=== PATIENT | male | born 1960 | race Caucasian/White ===

== ENCOUNTER → 2020-01-30 13:46 | Outpatient (BNVA) | payer MEDICARE, MEDICAID, SELFPAY | PROVIDERS: Visit Provider Surgery | DX: Z20.828 Contact with and (suspected) exposure to other viral communicable diseases (principal) | CPT/HCPCS: 87635 ==

== ENCOUNTER 2020-02-02 06:52 | Day surgery (SDC) | payer MEDICARE, MEDICAID, SELFPAY ==
[2020-01-28 12:22] VITALS: BMI 36.9
[2020-02-02 07:10] VITALS: BP 148/105; PULSE 72; RESP 18; TEMP 36.4; O2SAT 92
[2020-02-02] MEDS: sodium chloride 0.9% 1,000 ML 30 ML IV (07:17)
[2020-02-02 07:20] LABS: Glucose Point of Care 140 mg/dL (70-110)
--- NOTE | 2020-02-02 07:46 | P.ANESASSM_ITS ---
Pre-Anesthetic Assessment Pre-Anesthetic Assessment: Height/Weight: Height 1.68 m Weight 103.873 kg Temp Pulse Resp BP Pulse Ox 97.5 F L 72 18 148/105 92 02/02/20 07:10 02/02/20 07:10 02/02/20 07:10 02/02/20 07:10 02/02/20 07:10 Preop Diagnosis: Screening Proposed Procedure: Operation Date: 02/02/20 08:00 Proposed Procedures p Colonoscopy 02582 Z12.11(Not Applicable) - Brad Cerna MD Familial anesthetic complications: None Was Beta Gonzalo taken within 24 hours: N/A Last intake: Intake Last Liquid Date 02/01/20 Last Liquid Time 21:00 Last Solid Date 01/31/20 Last Solid Time 20:00 Social: Social History: No alcohol and No tobacco Exam: Pre-Anes Outpt Exam: alert, oriented x 3, clear to auscultation bilatera lly and regular rate & rhythm Airway: Cervical ROM: WNL MP: 1 Dentition: False Musc/skel: Musc/skel: OA/DJD Neuropsych: Comments: intellectual disability Anesthetic Plan: ASA status: 1 Anesthesia: MAC Risk of > 500 ml blood loss (7ml/kg in children): No Meds/Allergies Current Medications: Current Medications Generic Name Dose Route Start Last Admin Trade Name Freq PRN Reason Stop Dose Admin Sodium Chloride 1,000 mls @ 30 ml s/hr 02/02/20 07:00 02/02/20 07:17 Sodium Chloride 0.9% IV 02/03/20 06:59 30 mls/hr .Q24H BLOSSOM Administration PFSH Anesthesia PFSH: Medical History (Updated 12/28/19 @ 16:08 by Brad Cerna MD) Bipolar disorder, current episode manic without psychotic features, severe Intellectual disability Umbilical hernia, incarcerated Social History Smoking and tobacco status: never smoked Alcohol intake: never Caregiver/support person: Yes Lives independently: No Marital status: Single History of recent travel: No Data Anesthesia Other Labs: Laboratory Results - last 48 hr 02/02/20 07:17 POC Glucose 140 Cardiac Studies: No Data to Display
[2020-02-02 08:25] VITALS: BP 131/99; PULSE 68; RESP 16; TEMP 36.1; O2SAT 94
--- NOTE | 2020-02-02 08:32 | W.PM.OPSFHP ---
Same Day Surgery H&P Indication for Procedure/HPI DATE OF PROCEDURE: February 02, 2020 CHIEF COMPLAINT/INDICATIONFOR SURGICAL PROCEDURE: screeening PREOP DIAGNOSIS: Screening PLANNED PROCEDRUE: Operation Date: 02/02/20 08:00 Proposed Procedures p Colonoscopy 02452 Z12.11(Not Applicable) - Brad Cerna MD Medications/Allergies* Home Medications Medication Instructions Recorded Confirmed Type acetaminophen 300 mg-codeine 30 mg 1 tab PO TID PRN 12/28/19 02/02/20 History tablet ibuprofen 800 mg tablet 800 mg PO TID 12/28/19 01/28/20 History tizanidine 4 mg capsule 4 mg PO Q8H PRN 12/28/19 02/02/20 History Allergies/Adverse Reactions Allergy/AdvReac Type Severity Reaction Status Date / Time No Known Allergies Allergy Verified 12/28/19 11:38 Current Medications: Generic Name Dose Route Start Last Admin Trade Name Freq PRN Reason Stop Dose Admin Sodium Chloride 1,000 mls @ 30 mls/hr 02/02/20 07:00 02/02/20 07:17 Sodium Chloride 0.9% IV 02/03/20 06:59 30 mls/hr .Q24H BLOSSOM Administration Pertinent History/Comorbid Conditions* Medical History (Updated 12/28/19 @ 16:08 by Brad Cerna MD) Bipolar disorder, current episode manic without psychotic features, severe Intellectual disability Umbilical hernia, incarcerated Social History Smoking and tobacco status: never smoked Alcohol intake: never Caregiver/support person: Yes Lives independently: No Marital status: Single History of recent travel: No Pertinent Exam Findings alert, oriented x 3 and regular rate & rhythm Recommendations Surgery/Procedure today Coding Level of Care Code Acute Armature Rewinder for Yandel Lemus
[2020-02-02 08:37] VITALS: BP 141/100; PULSE 67; RESP 18; O2SAT 95
--- NOTE | 2020-02-02 17:29 | ANE.PACU2 ---
Inpatient post-anesthesia follow up: Airway intact: Yes Vital signs: Temperature 97.0 F Pulse Rate 67 Respiratory Rate 18 Blood Pressure 141/100 Pulse Oximetry 95 Oxygen Delivery Me thod Room Air Oxygen Flow Rate Fraction of Inspir ed Oxygen Hydration adequate: Yes Nausea and vomiting: No Pain level: 1 Mental status: Baseline
== END 2020-02-02 08:50 | disposition home or self-care (01) ==
PROVIDERS: PCP Nurse Practitioner Family; Visit Provider Surgery
PROC: 0DJD8ZZ Inspection of Lower Intestinal Tract, Via Natural or Artificial Opening Endoscopic (ICD-10-PCS; CPT 45378; principal; 2020-02-02 08:00)
DX: Z12.11 Encounter for screening for malignant neoplasm of colon (principal); K64.8 Other hemorrhoids; M19.90 Unspecified osteoarthritis, unspecified site
CPT/HCPCS: 12345; 36416; 82962; G0121; J2704; J7030

== ENCOUNTER 2020-02-03 08:15 | Day surgery (SDC) | payer MEDICARE, MEDICAID, SELFPAY ==
[2020-02-02 17:38] VITALS: BMI 36.9
[2020-02-03] VITALS (10 sets, daily range): BP systolic 138–180; BP diastolic 93–112; PULSE 63–80; RESP 16–20; TEMP 36.3–36.6; O2SAT 90–97
--- NOTE | 2020-02-03 09:34 | ANES.PREANE2 ---
Pre-Anesthetic Assessment Pre-Anesthetic Assessment: Height/Weight: Height 1.68 m Weight 103.873 kg Temp Pulse Resp BP Pulse Ox 97.8 F 80 20 H 155/102 95 02/03/20 09:07 02/03/20 09:07 02/03/20 09:07 02/03/20 09:07 02/03/20 09:07 Preop Diagnosis: incisional hernia Proposed Procedure: Operation Date: 02/03/20 10:05 Proposed Procedures p Laparoscopic poss Open Umbilical Hernia Repair w/ Mesh 83176 K42.0(Not Applicable) - Brad Cerna MD Was Beta Gonzalo taken within 24 hours: N/A Last intake: Intake Last Liquid Date 02/02/20 Last Liquid Time 21:00 Last Solid Date 02/02/20 Last Solid Time 21:00 Social: Social History: No alcohol and No tobacco Exam: Pre-Anes Outpt Exam: alert, oriented x 3, clear to auscultation bilaterally and regular rate & rhythm Airway: Submandibular: WNL Cervical ROM: WNL MP: 1 Dentition: False History/ROS: No significant history except as noted Pulmonary: Pulmonary: None reported CV/HEM: CV/HEM: None reported : : None reported Hepatic: Hepatic: None reported GI: GI: None reported Metabolic: Metabolic: None reported Musc/skel: Musc/skel: OA/DJD Neuropsych: Neuropsych: Bipolar Comments: Cognitive delay with speech impediment Anesthetic Plan: ASA status: 3 Anesthesia: General PFS Anesthesia PFSH: Medical History (Updated 12/28/19 @ 16:08 by Brad Cerna MD) Bipolar disorder, current episode manic without psychotic features, severe Intellectual disability Umbilical hernia, incarcerated Surgical History (Updated 02/02/20 @ 08:33 by Brad Cerna MD) Status post colonoscopy (02/02/20) repeat in 10 years Social History Smoking and tobacco status: never smoked Alcohol intake: never Caregiver/support person: Yes Lives independently: No Marital status: Single History of recent travel: No Data Anesthesia Cardiac Studies: No Data to Display
[2020-02-03] MEDS: sodium chloride 0.9% 1,000 ML 30 ML IV (09:51)
--- NOTE | 2020-02-03 10:08 | W.PM.OPSFHP ---
Same Day Surgery H&P Indication for Procedure/HPI DATE OF PROCEDURE: February 03, 2020 CHIEF COMPLAINT/INDICATIONFOR SURGICAL PROCEDURE: umbilical hernia PREOP DIAGNOSIS: incisional hernia PLANNED PROCEDRUE: Operation Date: 02/03/20 10:05 Proposed Procedures p Laparoscopic poss Open Umbilical Hernia Repair w/ Mesh 98395 K42.0(Not Applicable) - Brad Cerna MD Medications/Allergies* Home Medications Medication Instructions Recorded Confirmed Type acetaminophen 300 mg-codeine 30 mg 1 tab PO TID PRN 12/28/19 02/03/20 History tablet ibuprofen 800 mg tablet 800 mg PO TID 12/28/19 02/03/20 History tizanidine 4 mg capsule 4 mg PO Q8H PRN 12/28/19 02/03/20 History Allergies/Adverse Reactions Allergy/AdvReac Type Severity Reaction Status Date / Time No Known Allergies Allergy Verified 02/03/20 09:07 Current Medications: Generic Name Dose Route Start Last Admin Trade Name Freq PRN Reason Stop Dose Admin Sodium Chloride 1,000 mls @ 30 mls/hr 02/03/20 09:45 02/03/20 09:51 Sodium Chloride 0.9% IV 02/04/20 09:44 30 mls/hr .Q24H BLOSSOM Administration Pertinent History/Comorbid Conditions* Medical History (Updated 12/28/19 @ 16:08 by Brad Cerna MD) Bipolar disorder, current episode manic without psychotic features, severe Intellectual disability Umbilical hernia, incarcerated Surgical History (Updated 02/02/20 @ 08:33 by Brad Cerna MD) Status post colonoscopy (02/02/20) repeat in 10 years Social History Smoking and tobacco status: never smoked Alcohol intake: never Caregiver/support person: Yes Lives independently: No Marital status: Single History of recent travel: No Pertinent Exam Findings alert, oriented x 3, regular rate & rhythm and operative site marked Recommendations Surgery/Procedure today Coding Level of Care Code Acute Rabbit Breeder for Yandel Lemus
[2020-02-03] MEDS: fentaNYL 50 mcg/mL INJ 2mL IVP (12:33)
--- NOTE | 2020-02-03 12:43 | SUR.PHASEI ---
PT RESTING QUIETLY, AWAKES AND LOOKS AT ABD, VSS PT WITH 3LNC SATS 91% PT ENCOURAGED TO DEEP BREATH OCCASIONALLY AND PT AWAKES EASILY IS ALERT AND FOLLOWS COMMANDS.
--- NOTE | 2020-02-03 13:25 | ANE.PACU2 ---
Inpatient post-anesthesia follow up: Airway intact: Yes Vital signs: Temperature 97.3 F Pulse Rate 63 Respiratory Rate 16 Blood Pressure 143/93 Pulse Oximetry 94 Oxygen Delivery Me thod Nasal Cannula Oxygen Flow Rate 2 Fraction of Inspir ed Oxygen Hydration adequate: Yes Nausea and vomiting: No Pain level: 4 Mental status: Baseline
[2020-02-03] MEDS: HYDROcodone-acetaminophen 5-325 mg Tablet 1 TAB PO (15:17)
--- NOTE | 2020-02-04 13:38 | PM.OP ---
Operative Report Date of procedure: February 04, 2020 Pre-op Diagnosis: Incarcerated umbililcal hernia Post-op Diagnosis: Incarcerated umbilical hernia containing omentum Procedure Done: Laparoscopic converted to open umbilical hernia repair Implantation of ventralight ST mesh Pathology: Omentum Surgeon: Brad Cerna Anesthesia: General Condition: stable Disposition: PACU Procedure: The patient was taken to the Operating Room and was intubated under general anesthesia after the antibiotic had been administered. The abdomen was prepped and draped in a sterile manner. Using a 15 blade, a 2-cm incision was made in the left upper quadrant in the anterior axillary line and pneumoperitoneum was created using Verres needle. A 10 mm Narendra port was placed and 15 mm of pneumoperitoneum was created after a 10 mm 30? scope had been introduced. 5 mm ports were placed at the level of the umbilicus and in the left lower quadrant under direct visualization. The skin at all 3 incisions for closed using subcuticular 4-0 Monocryl suture. The stab incisions and the 3 port sites were covered with Dermabond. 10cc of 0.5% Marcaine was infiltrated around the port sites. Abdominal binder was placed at the end of the procedure.
--- NOTE | 2020-02-12 15:59 | PM.OP ---
Operative Report Date of procedure: February 03, 2020 Pre-op Diagnosis: Incarcerated umbililcal hernia Post-op Diagnosis: Incarcerated umbilical hernia containing omentum Procedure Done: Laparoscopic converted to open umbilical hernia repair Implantation of Bard mesh Pathology: none sent Surgeon: Brad Cerna Anesthesia: General Condition: stable Disposition: PACU Procedure: The patient was taken to the Operating Room and was intubated under general anesthesia after the antibiotic had been administered. The abdomen was prepped and draped in a sterile manner. Using a 15 blade, a 2-cm incision was made in the left upper quadrant in the anterior axillary line and pneumoperitoneum was created using Verres needle. A 10 mm Narendra port was placed and 15 mm of pneumoperitoneum was created after a 10 mm 30? scope had been introduced. 5 mm ports were placed at the level of the umbilicus and in the left lower quadrant under direct visualization. Multiple attempts were made using [place] forceps and bowel graspers to reduce the incarcerated omentum within the hernia which were all unsuccessful. It appeared that the patient had a small defect with a large amount of incarcerated omentum which could not be reduced laparoscopically. I therefore decided to convert to an open surgery. The laparoscopic ports were removed and pneumoperitoneum released. Using a 15 blade longitudinal incision was made over the incarcerated umbilical hernia, subcutaneous tissue was divided using electrocautery and the hernia sac was freed from the surrounding subcutaneous tissue and opened. The incarcerated omentum was divided using electrocautery since it could not be reduced due to the hernia defect. The hernia sac was excised and a subcutaneous plane created for suturing the mesh. The preperitoneal space was then freed up and the peritoneum was closed using 2-0 Vicryl suture. A Bard mesh was introduced into the preperitoneal space which had been opened up and sutured to the fascia using 2-0 Prolene suture. The umbilical defect was closed using 0 Vicryl sutures. The subcutaneous tissues were approximated using 3-0 Vicryl suture after the excess skin was excised using a 15 blade. The skin was closed using running subcuticular 4-0 Monocryl suture and surgical glue. 10cc of 0.5% Marcaine was infiltrated around the port sites.
== END 2020-02-03 14:30 | disposition home or self-care (01) ==
PROVIDERS: PCP Nurse Practitioner Family; Visit Provider Surgery
PROC: (CPT 49587; principal; 2020-02-03 10:05)
PROC: (CPT 49587; 2020-02-03 10:05)
DX: K42.0 Umbilical hernia with obstruction, without gangrene (principal); Z53.31 Laparoscopic surgical procedure converted to open procedure; Z79.1 Long term (current) use of non-steroidal anti-inflammatories (NSAID)
CPT/HCPCS: 49587; 12345; 88302; C9290; J0690; J2405; J2704; J3010; J3490; J7030

== ENCOUNTER 2022-02-11 13:54 | Emergency (ER) | payer MEDICARE, MEDICAID, SELFPAY ==
[2022-02-11 13:59] VITALS: BP 148/102; PULSE 87; RESP 18; TEMP 36.7; O2SAT 92
--- NOTE | 2022-02-11 14:06 | XRR_ITS ---
PROCEDURE INFORMATION: Exam: XR Chest Exam date and time: 02/11/2022 3:05 PM Age: 61 years old Clinical indication: Cough TECHNIQUE: Imaging protocol: Radiologic exam of the chest. Views: 2 views. COMPARISON: No relevant prior studies available. FINDINGS: Lungs: Unremarkable. No consolidation. Pleural spaces: Unremarkable. No pleural effusion. No pneumothorax. Heart/Mediastinum: Unremarkable. No cardiomegaly. Bones/joints: Unremarkable. XR/XR chest 2V* [id number] IMPRESSION: No acute findings.
--- NOTE | 2022-02-11 14:35 | ED_ITS ---
HPI - General Adult General: Chief complaint: General Medical Stated complaint: Chest pains Time Seen by Provider: 02/11/22 14:30 History of Present Illness: 61-year-old male presents with cough. He feels like he is got some chest tightness and pain in his chest from the cough. He r eports being on for about 2 weeks. Patient is currently on antibiotic. He has been on an antibiotic previously and and his PCP put him on a second 1. Patient does not have any nausea or vomiting. No reports of fever or chills. Associated symptoms: Reports dyspnea and malaise; Deny chest pain, headache(s), nausea, rash, palpitations or vomiting Review of Systems Const: Reports: fatigue and malaise; Denies: fever(s) or chills Eyes: Denies: blurry vision or eye discharge ENMT: Denies: throat pain or ear or mastoid pain Card: Denies: chest pain or palpitations Resp: Reports: dyspnea, non-productive cough and chest congestion; Denies: wheezing GI: Denies: abdominal pain, nausea or vomiting : Denies: flank pain or difficulty urinating Musc: Denies: neck pain or back pain Skin/Breast: Denies: rash or erythema Neuro: Denies: headache(s) or dizziness PFSH ED PFSH: Medical History Bipolar disorder, current episode manic without psychotic features, severe Intellectual disability Umbilical hernia, incarcerated Surgical History History of umbilical hernia repair Status post colonoscopy (02/02/20) repeat in 10 years Social History Smoking and tobacco status: never smoked Alcohol intake: never Caregiver/support person: Yes Lives independently: No Marital status: Single History of recent travel: No Physical Exam Const: COMMON NORMALS: no acute distress, average body habitus and alert HENMT: COMMON NORMALS: hearing grossly normal bilaterally and moist oral mucous membranes Chest: CHEST: Yes Symmetrical chest wall rise Resp: EFFORT & INSPECTION: Yes able to speak in complete sentences, No respir atory distress and Yes Actively coughing AUSCULTATION: bronchial breath s ounds Cardio: COMMON NORMALS: regular rate and regular rhythm RATE: regular rate RHYTHM: regular rhythm GI: COMMON NORMALS: Soft to palpation and non-tender PALPATION: Yes Soft to palpation Extremity: COMMON NORMALS: full ROM and capillary refill normal Neuro: COMMON NORMALS: no focal motor deficits and no sensory deficits noted SENSORIUM/ORIENTATION: Yes alert Psych: COMMON NORMALS: cooperative and speech normal SPEECH: Yes normal speech Course Vital Signs: Vital signs: Vital Signs Temperature 98.1 F 02/11/22 13:59 Pulse Rate 74 02/11/22 17:31 Respiratory Rate 16 02/11/22 17:31 Blood Pressure 138/71 02/11/22 17:31 Pulse Oximetry 97 02/11/22 17:31 Oxygen Delivery Me thod 02/11/22 17:16 MDM - General Adult Medical Decision Making Patient is positive for influenza. Patient with stable vital signs. I will prescribe him Tessalon Perles to help with the cough. Patient is outside the treatment window for Tamiflu.. Recommend plenty of fluids. Patient stable and discharged home Lab Data 02/11/22 15:00 02/11/22 15:00 Radiology Impressions Chest X-Ray 02/11/22 14:06 IMPRESSION: No acute findings. Laboratory Results WBC 5.4 10^3/uL (4.0-10.0) 02/11/22 15:00 RBC 5.72 10^6/uL (4.1-5.3) H 02/11/22 15:00 Hgb 16.5 g/dL (11.7-16.6) 02/11/22 15:00 Hct 51.5 % (42.0-52.0) 02/11/22 15:00 MCV 90.0 fl (80-94) 02/11/22 15:00 MCH 28.8 pg (28.0-34.0) 02/11/22 15:00 MCHC 32.0 g/dL (30.0-36.0) 02/11/22 15:00 RDW 13.9 % (12.1-15.1) 02/11/22 15:00 Plt Count 151 10^3/cmm (130-400) 02/11/22 15:00 MPV 11.8 fL (7.4-10.4) H 02/11/22 15:00 Neut % (Auto) 52.3 % 02/11/22 15:00 Lymph % (Auto) 32.4 % 02/11/22 15:00 [place] % (Auto) 12.3 % 02/11/22 15:00 Eos % (Auto) 1.7 % 02/11/22 15:00 Baso % (Auto) 0.6 % 02/11/22 15:00 Neut # (Auto) 2.84 10^3/uL (1.8-7.7) 02/11/22 15:00 Lymph # (Auto) 1.8 10^3/uL (0.8-4.8) 02/11/22 15:00 [place] # (Auto) 0.7 10^3/uL (0.2-0.9) 02/11/22 15:00 Eos # (Auto) 0.1 10^3/uL (0.0-0.8) 02/11/22 15:00 Baso # (Auto) 0.0 10^3/uL (0.0-0.1) 02/11/22 15:00 Nucleated RBC % (auto) 0 % 02/11/22 15:00 Nucleated RBCs # 0.0 /100WBC 02/11/22 15:00 Sodium 135 mmol/L (136-145) L 02/11/22 15:00 Potassium 4.1 mmol/L (3.5-5.1) 02/11/22 15:00 Chloride 100 mmol/L (98-107) 02/11/22 15:00 Carbon Dioxide 27 mmol/L (22-29) 02/11/22 15:00 Anion Gap 12.1 (5-19) 02/11/22 15:00 BUN 13 mg/dL (6-20) 02/11/22 15:00 Creatinine 0.7 mg/dL (0.7-1.2) 02/11/22 15:00 GFR Calculation 115.4 mL/min (90-130) 02/11/22 15:00 Glucose 79 mg/dL (65-115) 02/11/22 15:00 Calculated Osmolality 279 mOsm/kg (285-295) L 02/11/22 15:00 Calcium 9.3 mg/dL (8.5-10.5) 02/11/22 15:00 Total Bilirubin 0.2 mg/dL (0.15-1.2) 02/11/22 15:00 AST 57 U/L (0-40) H 02/11/22 15:00 ALT 54 U/L (0-41) H 02/11/22 15:00 Alkaline Phosphatase 117 U/L (40-130) 02/11/22 15:00 Total Protein 7.8 g/dL (6.6-8.7) 02/11/22 15:00 Albumin 4.0 g/dL (3.5-5.2) 02/11/22 15:00 Globulin 3.8 g/dL (1.3-4.6) 02/11/22 15:00 Procalcitonin 0.07 ng/mL (0-0.5) 02/11/22 15:00 Nasal Influ A H1 2009 PCR Not detected (NOT DETECT) 02/11/22 14:54 Adenovirus (PCR) Not detected (NOT DETECT) 02/11/22 14:54 C. pneumoniae DNA (PCR) Not detected (NOT DETECT) 02/11/22 14:54 Coronavirus 229E (PCR) Not detected (NOT DETECT) 02/11/22 14:54 Human Metapneumovir PCR Not detected (NOT DETECT) 02/11/22 14:54 Influenza A (H1) PCR Not detected (NOT DETECT) 02/11/22 14:54 Influenza A (H3) PCR Detected (NOT DETECT) A 02/11/22 14:54 Influenza Type A (PCR) Detected (NOT DETECT) A 02/11/22 14:54 Influenza Type B (PCR) Not detected (NOT DETECT) 02/11/22 14:54 M. pneumoniae (PCR) Not detected (NOT DETECT) 02/11/22 14:54 Parainfluenza 1 (PCR) Not detected (NOT DETECT) 02/11/22 14:54 Parainfluenza 2 (PCR) Not detected (NOT DETECT) 02/11/22 14:54 Parainfluenza 3 (PCR) Not detected (NOT DETECT) 02/11/22 14:54 Parainfluenza 4 (PCR) Not detected (NOT DETECT) 02/11/22 14:54 RSV Type A (PCR) Not detected (NOT DETECT) 02/11/22 14:54 RSV Type B (PCR) Not detected (NOT DETECT) 02/11/22 14:54 Entero/Rhino (PCR) Not detected (NOT DETECT) 02/11/22 14:54 SARS-CoV-2 (PCR) Not detected (NOT DETECT) 02/11/22 14:54 Discharge Plan Discharge Patient Disposition: Home Clinical Impression: Influenza A Condition: Stable Prescriptions: New benzonatate 100 mg capsule 100 mg PO Q6H PRN (Reason: cough) Qty: 20 0RF No Action ibuprofen 800 mg tablet 800 mg PO TID glipizide 10 mg tablet 20 mg PO BID acetaminophen-codeine 300-60 mg tablet 1 tab PO BID PRN (Reason: Pain) amoxicillin-pot clavulanate 875-125 mg tablet 1 tab PO DAILY buspirone 15 mg tablet 15 mg PO BID PRN (Reason: Anxiety) DOK 100 mg capsule 100 mg PO BID Discharge Orders: Discharge ED (Routine); Ordered 02/11/22 Ordered By: Pollo Ross Referrals: Edwina Hill [Primary Care Provider] - Discharge Diet: Usual diet Discharge Activity: Resume usual activity Patient Instructions: Influenza (DC), Opioid Safety, Pain Management Activity Restrictions/Additional Instructions: Follow-up with your primary care provider as needed Coding Level of Care Code ED Manufacturing Area Manager for Chg Fwd Exam Comprehensive
[2022-02-11 15:25] LABS: Basophils % 0.6 %; Eosinophils # 0.1 10^3/uL (0.0-0.8); Eosinophils % 1.7 %; Hematocrit 51.5 % (42.0-52.0); Hemoglobin 16.5 g/dL (11.7-16.6); Lymphocytes # 1.8 10^3/uL (0.8-4.8); Lymphocytes % 32.4 %; Mean Corpuscular Hemoglobin 28.8 pg (28.0-34.0); Mean Platelet Volume 11.8 fL (7.4-10.4); Monocytes # 0.7 10^3/uL (0.2-0.9); Monocytes % 12.3 %; Neutrophils # 2.84 10^3/uL (1.8-7.7); Neutrophils % 52.3 %; Nucleated Red Blood Cells % 0 %; Platelet Count 151 10^3/cmm (130-400); Red Blood Count 5.72 10^6/uL (4.1-5.3); Red Cell Distribution Width 13.9 % (12.1-15.1); White Blood Count 5.4 10^3/uL (4.0-10.0)
[2022-02-11] MEDS: benzonatate 100 mg Capsule 200 MG PO (15:28)
[2022-02-11 15:37] LABS: Alanine Aminotransferase 54 U/L (0-41); Alkaline Phosphatase 117 U/L (40-130); Anion Gap 12.1 (5-19); Aspartate Amino Transferase 57 U/L (0-40); Blood Urea Nitrogen 13 mg/dL (6-20); Calcium 9.3 mg/dL (8.5-10.5); Carbon Dioxide 27 mmol/L (22-29); Chloride 100 mmol/L (98-107); Globulin 3.8 g/dL (1.3-4.6); Glomerular Filtration Rate 115.4 mL/min (90-130); Glucose 79 mg/dL (65-115); Osmolality Calculated 279 mOsm/kg (285-295); Potassium 4.1 mmol/L (3.5-5.1); Sodium 135 mmol/L (136-145); Total Bilirubin 0.2 mg/dL (0.15-1.2); Total Protein 7.8 g/dL (6.6-8.7)
[2022-02-11 15:44] LABS: Procalcitonin 0.07 ng/mL (0-0.5)
[2022-02-11 17:04] LABS: Adenovirus Not Detected (NOT DETECT); Chlamydia Pneumoniae Not Detected (NOT DETECT); Coronavirus 229E,HKU1,NL63,OC4 Not Detected (NOT DETECT); Human Metapneumovirus Not Detected (NOT DETECT); Human Rhinovirus/Enterovirus Not Detected (NOT DETECT); Influenza A Detected (NOT DETECT); Influenza A H1 Not Detected (NOT DETECT); Influenza A H1-2009 Not Detected (NOT DETECT); Influenza A H3 Detected (NOT DETECT); Influenza B Not Detected (NOT DETECT); Mycoplasma Pneumoniae Not Detected (NOT DETECT); Parainfluenza Virus Type 1 Not Detected (NOT DETECT); Parainfluenza Virus Type 2 Not Detected (NOT DETECT); Parainfluenza Virus Type 3 Not Detected (NOT DETECT); Parainfluenza Virus Type 4 Not Detected (NOT DETECT); Respiratory Syncytial Virus A Not Detected (NOT DETECT); Respiratory Syncytial Virus B Not Detected (NOT DETECT); SARS-COV-2 Not Detected (NOT DETECT)
[2022-02-11 17:16] VITALS: PULSE 79; RESP 16; O2SAT 97
[2022-02-11] MEDS: ipratropium-albuterol 3 mL Neb INHALATION (17:16)
[2022-02-11 17:18] VITALS: PULSE 80
[2022-02-11 17:31] VITALS: BP 138/71; PULSE 74; RESP 16; O2SAT 97
== END 2022-02-11 17:30 | disposition home or self-care (01) ==
PROVIDERS: Emergency Provider Student in an Organized Health Care Education/Training Program; PCP Nurse Practitioner Family
DX: J10.1 Influenza due to other identified influenza virus with other respiratory manifestations (principal); Z79.84 Long term (current) use of oral hypoglycemic drugs; Z20.822 Contact with and (suspected) exposure to COVID-19
CPT/HCPCS: 71046; 80053; 84145; 85025; 87486; 87581; 87633; 94640; 99284

== ENCOUNTER 2022-10-04 09:56 | Emergency (ER) | payer MEDICARE, MEDICAID, SELFPAY ==
[2022-10-04 10:01] VITALS: BP 153/93; PULSE 77; RESP 18; TEMP 36.6; O2SAT 95; BMI 34.2
--- NOTE | 2022-10-04 10:09 | XRR_ITS ---
PROCEDURE INFORMATION: Exam: XR Chest Exam date and time: 10/04/2022 10:22 AM Age: 62 years old Clinical indication: Pain; Angina pectoris; Additional info: Cp TECHNIQUE: Imaging protocol: Radiologic exam of the chest. Views: 1 view. COMPARISON: CR (CHEST, ) 02/11/2022 3:05 PM FINDINGS: Lungs: Unremarkable. No consolidation. Pleural spaces: Unremarkable. No pleural effusion. No pneumothorax. Heart/Mediastinum: Unremarkable. No cardiomegaly. Bones/joints: Unremarkable. XR/XR chest 1V portable [id number] IMPRESSION: No acute findings.
--- NOTE | 2022-10-04 10:09 | ECG_ITS ---
[facility] Test Date: 2022-10-04 Pat Name: Satish Fernandez Department: Room: Gender: Male Operations Asst: : 1960 Requested By: Jono Noel Order Number: [id number] Dickens MD: Jose Elias Cooper M.D. Measurements Intervals [place] Rate: 77 P: 66 W[place]: 162 QRS: 48 QRSD: 103 T: 62 QT: 376 QTc: 428 Interpretive Statements SINUS RHYTHM No previous ECG available for comparison Electronically Signed On 10-04-2022 14:51:16 CDT by Jose Elias Cooper M.D. [id number] [email or web address]
--- NOTE | 2022-10-04 10:23 | ED_ITS ---
Documented by User: TED Jason 10/04/22 14:07 HPI - Abdominal Pain General: Chief Complaint: Nausea/Vomiting/Diarrhea Stated Complaint: n/v ABD PAIN Time Seen by Provider: 10/04/22 10:09 History of Present Illness: Patient is a 62-year-old male comes to the ED with abdominal pain nausea and vomiting. Past abdominal surgery of appendectomy and umbilical hernia repair. Symptoms started started approximately 4 days ago. Patient says every morning for the past 4 days he wakes up with abdominal pain in the center of his abdomen that he rates a 6 out of 10. He has nausea and multiple episodes of emesis every morning. Patient says he vomits up white-colored emesis. He states that his abdominal pain is constant then throughout the day but waxes and wanes in intensity of pain. He also endorses having some chest pain in the morning especially after he vomits. Chest pain goes away throughout the rest of the day. Chest pain is located in center part of the chest. He denies any current chest pain here in the ED. Denies any fevers, chills, bladder or bowel symptoms. Denies any cardiac history. Associated Symptoms: Reports nausea and vomiting; Denies chills, constipation, diarrhea, dysuria, fever(s), hematochezia and hematuria Review of Systems Const: Denies: fever(s), chills or fatigue Eyes: Denies: change in vision or eye discomfort ENMT: Denies: throat pain, odynophagia, nasal discharge or nasal congestion Card: Denies: chest pain, palpitations, edema, swelling of feet/ankles, dyspnea on exertion or orthopnea Resp: Denies: dyspnea, productive cough or non-productive cough GI: Reports: abdominal pain, nausea and vomiting; Denies: diarrhea, constipation or hematochezia : Denies: flank pain, difficulty urinating, dysuria or hematuria Musc: Denies: neck pain, back pain or extremity swelling Skin/Breast: Denies: rash or new lesions Neuro: Denies: headache(s), numbness in extremities or weakness in extremities [facility] ED PFSH: Medical History Bipolar disorder, current episode manic without psychotic features, severe Intellectual disability Umbilical hernia, incarcerated Surgical History History of umbilical hernia repair Status post colonoscopy (02/02/20) repeat in 10 years Social History Smoking and tobacco status: never smoked Alcohol intake: never Substance/Drug Use: never Caregiver/support person: Yes Lives independently: No Marital status: Single Physical Exam Const: COMMON NORMALS: no acute distress, patient oriented x3 and alert GENERAL APPEARANCE: cooperative and comfortable HENMT: COMMON NORMALS: normocephalic HEAD & SCALP: normocephalic MOUTH: Normal oral and palatal mucosa present THROAT: posterior oropharynx normal and uvula midline Neck/C-Spine: COMMON NORMALS: supple GENERAL: Yes normal visual inspection Resp: COMMON NORMALS: normal respiratory effort, No retractions, No use of accessory muscles and clear to auscultation bilaterally AUSCULTATION: clear to auscultation bilaterally Cardio: COMMON NORMALS: regular rate, regular rhythm, S1 normal heart sound present, S2 normal heart sound present, No gallops present (Cardio), No clicks present (Cardio), No murmurs present (Cardio) and Peripheral pulses 2+ throughout RATE: regular rate RHYTHM: regular rhythm HEART SOUNDS: S1 normal heart sound present and S2 normal heart sound present PERIPHERAL PULSES: Peripheral pulses 2+ throughout GI: COMMON NORMALS: Normal to inspection, nondistended, normoactive bowel sounds present, Soft to palpation and no masses PALPATION: Yes Soft to palpation and Yes Tenderness to palpation present (GI) (Mild to moderate Central abdominal tenderness) : COMMON NORMALS: Yes no CVA tenderness BLADDER/KIDNEY EXAM: Yes no CVA tenderness Back/Pelvis: COMMON NORMALS: no CVA tenderness Extremity: COMMON NORMALS: normal to inspection Neuro: COMMON NORMALS: patient oriented x3 SENSORIUM/ORIENTATION: Yes alert GAIT: Yes Normal gait present Skin: GENERAL SKIN EXAM: dry skin Course Vital Signs: Vital signs: Vital Signs Temperature 97.8 F 10/04/22 10:01 Pulse Rate 64 10/04/22 13:20 Respiratory Rate 16 10/04/22 13:20 Blood Pressure 128/96 10/04/22 13:20 Pulse Oximetry 97 10/04/22 13:20 Oxygen Delivery Me thod Room Air 10/04/22 13:20 MDM - Abdominal Pain Medical Decision Making Patient is a 62-year-old male comes to the ED with abdominal pain nausea and vomiting. Past abdominal surgery of appendectomy and umbilical hernia repair. Symptoms started started approximately 4 days ago. Patient says every morning for the past 4 days he wakes up with abdominal pain in the center of his abdomen that he rates a 6 out of 10. He has nausea and multiple episodes of emesis every morning. Patient says he vomits up white-colored emesis. He states that his abdominal pain is constant then throughout the day but waxes and wanes in intensity of pain. He also endorses having some chest pain in the morning especially after he vomits. Chest pain goes away throughout the rest of the day. Chest pain is located in center part of the chest. He denies any current chest pain here in the ED. Denies any fevers, chills, bladder or bowel symptoms. Denies any cardiac history. Vitals are stable. Patient appears nontoxic in no acute distress or pain. He has some mild to moderate central ab dominal tenderness upon exam but rest of exam is benign. Labs are all unremarkable. Troponins negative. EKG showed normal sinus rhythm with no ST segment elevation or depression seen. Chest x-ray showed no acute findings. CT of abdomen pelvis showed no acute findings. Patient was diagnosed with abdominal pain and atypical chest pain and was stable for discharge home. He was sent home with a prescription for Zofran. Told to follow-up with his PCP in the next week for reevaluation. Return to ED precautions given. Patient understood and agreed with plan. Lab Data I reviewed the patient's lab results. 10/04/22 10:15 10/04/22 10:58 Labs/Radiology: Radiology Impressions Chest X-Ray 10/04/22 10:09 IMPRESSION: No acute findings. Abdomen/Pelvis CT 10/04/22 10:30 IMPRESSION: No acute abnormality. COMMENTS: Consistent with the [place] [employer]'s Incidental Findings Committee white paper (J Am Lakisha Radiol 2018): Any incidental renal lesion less than 1 cm or classified as too small to characterize, or any incidental cystic renal lesion characterized as simple-appearing, is likely benign. No follow-up imaging is recommended for these lesions per consensus recommendations based on imaging criteria. Laboratory Results WBC 9.4 10^3/uL (4.0-10.0) 10/04/22 10:15 RBC 5.03 10^6/uL (4.1-5.3) 10/04/22 10:15 Hgb 14.6 g/dL (11.7-16.6) 10/04/22 10:15 Hct 44.9 % (42.0-52.0) 10/04/22 10:15 MCV 89.3 fl (80-94) 10/04/22 10:15 MCH 29.0 pg (28.0-34.0) 10/04/22 10:15 MCHC 32.5 g/dL (30.0-36.0) 10/04/22 10:15 RDW 13.5 % (12.1-15.1) 10/04/22 10:15 Plt Count 146 10^3/cmm (130-400) 10/04/22 10:15 MPV 12.4 fL (7.4-10.4) H 10/04/22 10:15 Neut % (Auto) 64.5 % 10/04/22 10:15 Lymph % (Auto) 26.0 % 10/04/22 10:15 Long % (Auto) 6.5 % 10/04/22 10:15 Eos % (Auto) 1.8 % 10/04/22 10:15 Baso % (Auto) 0.6 % 10/04/22 10:15 Neut # (Auto) 6.05 10^3/uL (1.8-7.7) 10/04/22 10:15 Lymph # (Auto) 2.4 10^3/uL (0.8-4.8) 10/04/22 10:15 Long # (Auto) 0.6 10^3/uL (0.2-0.9) 10/04/22 10:15 Eos # (Auto) 0.2 10^3/uL (0.0-0.8) 10/04/22 10:15 Baso # (Auto) 0.1 10^3/uL (0.0-0.1) 10/04/22 10:15 Nucleated RBC % (auto) 0 % 10/04/22 10:15 Nucleated RBCs # 0.0 /100WBC 10/04/22 10:15 Sodium 135 mmol/L (136-145) L 10/04/22 10:58 Potassium 3.9 mmol/L (3.5-5.1) 10/04/22 10:58 Chloride 105 mmol/L (98-107) 10/04/22 10:58 Carbon Dioxide 22 mmol/L (22-29) 10/04/22 10:58 Anion Gap 11.9 (5-19) 10/04/22 10:58 BUN 16 mg/dL (8-23) 10/04/22 10:58 Creatinine 0.8 mg/dL (0.7-1.2) 10/04/22 10:58 GFR Calculation 98.6 mL/min (90-130) 10/04/22 10:58 Glucose 154 mg/dL (65-115) H 10/04/22 10:58 Calculated Osmolality 284 mOsm/kg (285-295) L 10/04/22 10:58 Calcium 8.7 mg/dL (8.5-10.5) 10/04/22 10:58 Total Bilirubin 0.2 mg/dL (0.15-1.2) 10/04/22 10:58 AST 18 U/L (0-40) 10/04/22 10:58 ALT 39 U/L (0-41) 10/04/22 10:58 Alkaline Phosphatase 105 U/L (40-130) 10/04/22 10:58 Troponin T Baseline 12 ng/L (0-15) 10/04/22 10:58 Troponin T 120 Minute 11.71 ng/L (0-15) 10/04/22 12:52 Delta Troponin T -0.29 ABS# (0-10) L 10/04/22 12:52 Total Protein 6.1 g/dL (6.6-8.7) L 10/04/22 10:58 Albumin 3.7 g/dL (3.5-5.2) 10/04/22 10:58 Globulin 2.4 g/dL (1.3-4.6) 10/04/22 10:58 Lipase 77 U/L (13-60) H 10/04/22 10:58 Urine Color Straw (Yellow) 10/04/22 13:13 Urine Appearance Clear (CLEAR) 10/04/22 13:13 Urine pH 5 (5-7) 10/04/22 13:13 Ur Specific [place] 1.005 (1.005-1.030) 10/04/22 13:13 Urine Protein Neg (Negative) 10/04/22 13:13 Urine Glucose (UA) Norm (Normal) 10/04/22 13:13 Urine Ketones Negative (Negative) 10/04/22 13:13 Urine Blood Neg (Negative) 10/04/22 13:13 Urine Nitrate Negative (Negative) 10/04/22 13:13 Urine Bilirubin Neg (Negative) 10/04/22 13:13 Urine Urobilinogen Norm mg/dL (Negative) 10/04/22 13:13 Ur Leukocyte Esterase Negative (Negative) 10/04/22 13:13 EKG Data EKG 1: EKG interpretation date: 10/04/22 Interpretation: Sinus rhythm, 65 bpm, no ST segment elevation or depression seen. No other acute findings noted. Discharge Plan Discharge Patient Disposition: Home Clinical Impression: Atypical chest pain Abdominal pain Qualifiers: Abdominal location: generalized Qualified Code(s): R10.84 - Generalized abdominal pain Condition: Stable Prescriptions: New ondansetron 4 mg tablet,disintegrating 4 mg PO Q8H PRN (Reason: nausea and vomiting) Qty: 15 0RF No Action ibuprofen 800 mg tablet 800 mg PO TID glipizide 10 mg tablet 20 mg PO BID acetaminophen-codeine 300-60 mg tablet 1 tab PO BID PRN (Reason: Pain) buspirone 15 mg tablet 15 mg PO BID PRN (Reason: Anxiety) Discharge Orders: Discharge ED (Routine); Ordered 10/04/22 Ordered By: Jono Noel Referrals: Edwina Hill [Primary Care Provider] - Discharge Diet: Advance as tolerated Discharge Activity: Increase activity as tolerated Patient Instructions: Abdominal Pain (ED), Noncardiac Chest Pain (ED) Activity Restrictions/Additional Instructions: Follow-up with medical provider as directed in the next 5-7 days for ree valuation. Take medications as prescribed. Return to the ER or your medical provider if condition worsens. Please read and understand discharge instructions. Thank you for choosing [facility] for your healthcare needs today. Please realize this is an emergency room and that we are providing you with a medical screening exam and this may not be complete and all inclusive of all the testing and or work up that you may need to determine your ailment or severity of your illness. It is very important that you follow up as instructed or that you return to the Emergency Department should you have concerns or if your condition changes or worsens in any way. 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 [employer] Documented by User: Ventura Taylor DO 10/08/22 06:40 HPI - Abdominal Pain General: Chief Complaint: Nausea/Vomiting/Diarrhea Stated Complaint: n/v ABD PAIN Time Seen by Provider: 10/04/22 10:09 [facility] ED PFSH: Medical History Bipolar disorder, current episode manic without psychotic features, severe Intellectual disability Umbilical hernia, incarcerated Surgical History History of umbilical hernia repair Status post colonoscopy (02/02/20) repeat in 10 years Social History Smoking and tobacco status: never smoked Alcohol intake: never Substance/Drug Use: never Caregiver/support person: Yes Lives independently: No Marital status: Single Course Vital Signs: Vital signs: Vital Signs Temperature 97.8 F 10/04/22 10:01 Pulse Rate 64 10/04/22 13:20 Respiratory Rate 16 10/04/22 13:20 Blood Pressure 128/96 10/04/22 13:20 Pulse Oximetry 97 10/04/22 13:20 Oxygen Delivery Me thod Room Air 10/04/22 13:20 MDM - Abdominal Pain Medical Decision Making Patient is a 62-year-old male comes to the ED with abdominal pain nausea and vomiting. Past abdominal surgery of appendectomy and umbilical hernia repair. Symptoms started started approximately 4 days ago. Patient says every morning for the past 4 days he wakes up with abdominal pain in the center of his abdomen that he rates a 6 out of 10. He has nausea and multiple episodes of emesis every morning. Patient says he vomits up white-colored emesis. He states that his abdominal pain is constant then throughout the day but waxes and wanes in intensity of pain. He also endorses having some chest pain in the morning especially after he vomits. Chest pain goes away throughout the rest of the day. Chest pain is located in center part of the chest. He denies any current chest pain here in the ED. Denies any fevers, chills, bladder or bowel symptoms. Denies any cardiac history. Vitals are stable. Patient appears nontoxic in no acute distress or pain. He has some mild to moderate central abdominal tenderness upon exam but rest of exam is benign. Labs are all unremarkable. Troponins negative. EKG showed normal sinus rhythm with no ST segment elevation or depression seen. Chest x-ray showed no acute findings. CT of abdomen pelvis showed no acute findings. Patient was diagnosed with abdominal pain and atypical chest pain and was stable for discharge home. He was sent home with a prescription for Zofran. Told to follow-up with his PCP in the next week for reevaluation. Return to ED precautions given. Patient understood and agreed with plan. Chart reviewed and patient discussed with midlevel. Agree with assessment and plan. Lab Data 10/04/22 10:15 10/04/22 10:58 Labs/Radiology: Radiology Impressions Chest X-Ray 10/04/22 10:09 IMPRESSION: No acute findings. Abdomen/Pelvis CT 10/04/22 10:30 IMPRESSION: No acute abnormality. COMMENTS: Consistent with the [place] [employer]'s Incidental Findings Committee white paper (J Am Lakisha Radiol 2018): Any incidental renal lesion less than 1 cm or classified as too small to characterize, or any incidental cystic renal lesion characterized as simple-appearing, is likely benign. No follow-up imaging is recommended for these lesions per consensus recommendations based on imaging criteria. Laboratory Results WBC 9.4 10^3/uL (4.0-10.0) 10/04/22 10:15 RBC 5.03 10^6/uL (4.1-5.3) 10/04/22 10:15 Hgb 14.6 g/dL (11.7-16.6) 10/04/22 10:15 Hct 44.9 % (42.0-52.0) 10/04/22 10:15 MCV 89.3 fl (80-94) 10/04/22 10:15 MCH 29.0 pg (28.0-34.0) 10/04/22 10:15 MCHC 32.5 g/dL (30.0-36.0) 10/04/22 10:15 RDW 13.5 % (12.1-15.1) 10/04/22 10:15 Plt Count 146 10^3/cmm (130-400) 10/04/22 10:15 MPV 12.4 fL (7.4-10.4) H 10/04/22 10:15 Neut % (Auto) 64.5 % 10/04/22 10:15 Lymph % (Auto) 26.0 % 10/04/22 10:15 Long % (Auto) 6.5 % 10/04/22 10:15 Eos % (Auto) 1.8 % 10/04/22 10:15 Baso % (Auto) 0.6 % 10/04/22 10:15 Neut # (Auto) 6.05 10^3/uL (1.8-7.7) 10/04/22 10:15 Lymph # (Auto) 2.4 10^3/uL (0.8-4.8) 10/04/22 10:15 Long # (Auto) 0.6 10^3/uL (0.2-0.9) 10/04/22 10:15 Eos # (Auto) 0.2 10^3/uL (0.0-0.8) 10/04/22 10:15 Baso # (Auto) 0.1 10^3/uL (0.0-0.1) 10/04/22 10:15 Nucleated RBC % (auto) 0 % 10/04/22 10:15 Nucleated RBCs # 0.0 /100WBC 10/04/22 10:15 Sodium 135 mmol/L (136-145) L 10/04/22 10:58 Potassium 3.9 mmol/L (3.5-5.1) 10/04/22 10:58 Chloride 105 mmol/L (98-107) 10/04/22 10:58 Carbon Dioxide 22 mmol/L (22-29) 10/04/22 10:58 Anion Gap 11.9 (5-19) 10/04/22 10:58 BUN 16 mg/dL (8-23) 10/04/22 10:58 Creatinine 0.8 mg/dL (0.7-1.2) 10/04/22 10:58 GFR Calculation 98.6 mL/min (90-130) 10/04/22 10:58 Glucose 154 mg/dL (65-115) H 10/04/22 10:58 Calculated Osmolality 284 mOsm/kg (285-295) L 10/04/22 10:58 Calcium 8.7 mg/dL (8.5-10.5) 10/04/22 10:58 Total Bilirubin 0.2 mg/dL (0.15-1.2) 10/04/22 10:58 AST 18 U/L (0-40) 10/04/22 10:58 ALT 39 U/L (0-41) 10/04/22 10:58 Alkaline Phosphatase 105 U/L (40-130) 10/04/22 10:58 Troponin T Baseline 12 ng/L (0-15) 10/04/22 10:58 Troponin T 120 Minute 11.71 ng/L (0-15) 10/04/22 12:52 Delta Troponin T -0.29 ABS# (0-10) L 10/04/22 12:52 Total Protein 6.1 g/dL (6.6-8.7) L 10/04/22 10:58 Albumin 3.7 g/dL (3.5-5.2) 10/04/22 10:58 Globulin 2.4 g/dL (1.3-4.6) 10/04/22 10:58 Lipase 77 U/L (13-60) H 10/04/22 10:58 Urine Color Straw (Yellow) 10/04/22 13:13 Urine Appearance Clear (CLEAR) 10/04/22 13:13 Urine pH 5 (5-7) 10/04/22 13:13 Ur Specific [place] 1.005 (1.005-1.030) 10/04/22 13:13 Urine Protein Neg (Negative) 10/04/22 13:13 Urine Glucose (UA) Norm (Normal) 10/04/22 13:13 Urine Ketones Negative (Negative) 10/04/22 13:13 Urine Blood Neg (Negative) 10/04/22 13:13 Urine Nitrate Negative (Negative) 10/04/22 13:13 Urine Bilirubin Neg (Negative) 10/04/22 13:13 Urine Urobilinogen Norm mg/dL (Negative) 10/04/22 13:13 Ur Leukocyte Esterase Negative (Negative) 10/04/22 13:13 Discharge Plan Discharge Patient Disposition: Home Clinical Impression: Atypical chest pain Abdominal pain Qualifiers: Abdominal location: generalized Qualified Code(s): R10.84 - Generalized abdominal pain Condition: Stable Prescriptions: New ondansetron 4 mg tablet,disintegrating 4 mg PO Q8H PRN (Reason: nausea and vomiting) Qty: 15 0RF No Action ibuprofen 800 mg tablet 800 mg PO TID glipizide 10 mg tablet 20 mg PO BID acetaminophen-codeine 300-60 mg tablet 1 tab PO BID PRN (Reason: Pain) buspirone 15 mg tablet 15 mg PO BID PRN (Reason: Anxiety) Discharge Orders: Discharge ED (Routine); Ordered 10/04/22 Ordered By: Jono Noel Referrals: Edwina Hill [Primary Care Provider] - Discharge Diet: Advance as tolerated Discharge Activity: Increase activity as tolerated Patient Instructions: Abdominal Pain (ED), Noncardiac Chest Pain (ED) Activity Restrictions/Additional Instructions: Follow-up with medical provider as directed in the next 5-7 days for reevaluat ion. Take medications as prescribed. Return to the ER or your medical provider if condition worsens. Please read and understand discharge instructions. Thank you for choosing [facility] for your healthcare needs today. Please realize this is an emergency room and that we are providing you with a medical screening exam and this may not be complete and all inclusive of all the testing and or work up that you may need to determine your ailment or severity of your illness. It is very important that you follow up as instructed or that you return to the Emergency Department should you have concerns or if your condition changes or worsens in any way. 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
[2022-10-04 10:28] LABS: Basophils # 0.1 10^3/uL (0.0-0.1); Basophils % 0.6 %; Eosinophils # 0.2 10^3/uL (0.0-0.8); Eosinophils % 1.8 %; Hematocrit 44.9 % (42.0-52.0); Hemoglobin 14.6 g/dL (11.7-16.6); Lymphocytes # 2.4 10^3/uL (0.8-4.8); Mean Corpuscular HGB Conc 32.5 g/dL (30.0-36.0); Mean Corpuscular Volume 89.3 fl (80-94); Mean Platelet Volume 12.4 fL (7.4-10.4); Monocytes # 0.6 10^3/uL (0.2-0.9); Monocytes % 6.5 %; Neutrophils # 6.05 10^3/uL (1.8-7.7); Neutrophils % 64.5 %; Nucleated Red Blood Cells % 0 %; Platelet Count 146 10^3/cmm (130-400); Red Blood Count 5.03 10^6/uL (4.1-5.3); Red Cell Distribution Width 13.5 % (12.1-15.1); White Blood Count 9.4 10^3/uL (4.0-10.0)
--- NOTE | 2022-10-04 10:30 | CTR_ITS ---
PROCEDURE INFORMATION: Exam: CT Abdomen And Pelvis With Contrast Exam date and time: 10/04/2022 11:20 AM Age: 62 years old Clinical indication: Nausea and vomiting; Abdominal pain; Other: Central; Prior surgery; Surgery date: 6+ months; Surgery type: Hernia; Additional info: Central abdominal pain with nausea and vomiting TECHNIQUE: Imaging protocol: Computed tomography of the abdomen and pelvis with contrast. Radiation optimization: All CT scans at this facility use at least one of these dose optimization techniques: automated exposure control; mA and/or kV adjustment per patient size (includes targeted exams where dose is matched to clinical indication); or iterative reconstruction. Contrast material: OMNI 350; Contrast volume: 100 ml; Contrast route: INTRAVENOUS (IV); REPORTING DATA: Count of CT and Cardiac NM exams in prior 12 months: This patient has received 0 known CTs and 0 known cardiac nuclear medicine studies in the 12 months prior to the current study. COMPARISON: CR XR chest 1V portable [id number] 10/04/2022 10:22 AM RADIATION DOSE METRICS: Total DLP (mGy-cm): 994.43 FINDINGS: Liver: Normal. No mass. Gallbladder and bile ducts: Normal. No calcified stones. No ductal dilation. Pancreas: Normal. No ductal dilation. Spleen: Normal. No splenomegaly. Adrenal glands: Normal. No mass. Kidneys and ureters: There are multiple benign-appearing renal cysts measuring up to 1 cm in diameter. No renal calcifications. No hydronephrosis. Stomach and bowel: Unremarkable. No obstruction. No mucosal thickening. Appendix: No evidence of appendicitis. Intraperitoneal space: Unremarkable. No free air. No significant fluid collection. Vasculature: Unremarkable. No abdominal aortic aneurysm. Lymph nodes: Unremarkable. No enlarged lymph nodes. Urinary bladder: Unremarkable as visualized. Reproductive: Unremarkable as visualized. Bones/joints: Chronic degenerative changes are present in the spine. No acute bony abnormality. Soft tissues: There is a small fat containing right inguinal hernia. CT/CT abdomen pelvis w con* [id number] IMPRESSION: No acute abnormality. COMMENTS: Consistent with the [place] [employer]'s Incidental Findings Committee white paper (J Am Lakisha Radiol 2018): Any incidental renal lesion less than 1 cm or classified as too small to characterize, or any incidental cystic renal lesion characterized as simple-appearing, is likely benign. No follow-up imaging is recommended for these lesions per consensus recommendations based on imaging criteria.
[2022-10-04 10:34] VITALS: PULSE 74; O2SAT 96
[2022-10-04] MEDS: sodium chloride 0.9% 1,000 ML 999 ML IV (10:45)
[2022-10-04] MEDS: ondansetron 2 mg/ML SDV 2 mL 4 MG IVP (10:45)
[2022-10-04] MEDS: iohexol 350 mg/mL 500 mL Btl (per mL) IV (11:22)
[2022-10-04 11:30] LABS: Alanine Aminotransferase 39 U/L (0-41); Albumin Level 3.7 g/dL (3.5-5.2); Alkaline Phosphatase 105 U/L (40-130); Anion Gap 11.9 (5-19); Aspartate Amino Transferase 18 U/L (0-40); Blood Urea Nitrogen 16 mg/dL (8-23); Calcium 8.7 mg/dL (8.5-10.5); Carbon Dioxide 22 mmol/L (22-29); Chloride 105 mmol/L (98-107); Globulin 2.4 g/dL (1.3-4.6); Glomerular Filtration Rate 98.6 mL/min (90-130); Glucose 154 mg/dL (65-115); Lipase 77 U/L (13-60); Osmolality Calculated 284 mOsm/kg (285-295); Potassium 3.9 mmol/L (3.5-5.1); Sodium 135 mmol/L (136-145); Total Bilirubin 0.2 mg/dL (0.15-1.2); Total Protein 6.1 g/dL (6.6-8.7)
[2022-10-04 11:33] LABS: Troponin(5th) Baseline 12 ng/L (0-15)
--- NOTE | 2022-10-04 12:25 | ECG_ITS ---
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 Measurements Intervals Lindsay Rate: 65 P: 66 VA: 171 QRS: 36 QRSD: 96 T: 59 QT: 391 QTc: 409 Interpretive Statements SINUS RHYTHM Compared to ECG 10/04/2022 10:10:08 No significant changes Electronically Signed On 10-04-2022 14:53:50 CDT by Jose Elias Cooper M.D. [id number]
[2022-10-04 13:19] LABS: Add Urine Microscopic? NO; Charge for UA Resulting for Rev
[2022-10-04 13:20] VITALS: BP 128/96; PULSE 64; RESP 16; O2SAT 97
[2022-10-04 13:21] LABS: Troponin 5 2HR 11.71 ng/L (0-15)
[2022-10-04 13:31] LABS: Troponin 5 2HR Delta -0.29 ABS# (0-10)
[2022-10-04 13:41] LABS: Bilirubin Urine Neg (Negative); Blood Urine Neg (Negative); Glucose Urine UA Norm (Normal); Ketones Urine Negative (Negative); Leukocyte Esterase Urine Negative (Negative); Nitrate Urine Negative (Negative); Protein Urine Neg (Negative); Specific Gravity, Urine 1.005 (1.005-1.030); Urine Appearance Clear (CLEAR); Urine Color Straw (Yellow); Urobilinogen Urine Norm (Negative); pH Urine 5 (5-7)
== END 2022-10-04 13:57 | disposition home or self-care (01) ==
PROVIDERS: Emergency Provider Physician Assistant; PCP Nurse Practitioner Family
DX: R10.84 Generalized abdominal pain (principal)
CPT/HCPCS: 36415; 71045; 74177; 80053; 81003; 83690; 84484; 85025; 93005; 96374; 99285; J2405; J7030; Q9967